=== PATIENT | male | born 1980 | race Caucasian/White ===

== ENCOUNTER 2018-11-11 22:36 | Emergency (ER) | payer MEDICARE, MEDICAID ==
[~2018-11-11] VITALS: Ht 198.1 cm; Wt 59.5 kg
[2018-11-11 23:30] VITALS: BP 120/79
[2018-11-12] MEDS ORDERED: simethicone 80mg chew tab PO ONE (00:25)
[2018-11-12] MEDS ORDERED: SIME80TA16 PO (00:53)
== END 2018-11-12 01:00 | disposition home or self-care (01) ==
LOC: ER 22:37
DX: R14.0 Abdominal distension (gaseous) (principal); R06.02 Shortness of breath; R10.9 Unspecified abdominal pain; R07.9 Chest pain, unspecified; R14.2 Eructation; F17.210 Nicotine dependence, cigarettes, uncomplicated; Z79.899 Other long term (current) drug therapy
CPT/HCPCS: 93005; 99283